=== PATIENT | male | born 1985 | race Caucasian/White ===

== ENCOUNTER 2022-05-05 17:44 | Emergency (ER) | payer OTHER ==
[~2022-05-05] VITALS: Ht 167.6 cm; Wt 72.6 kg
--- NOTE | 2022-05-05 18:23 | NUR ---
BIBDMITRIY FROM [facility] FOR BILATERAL FOOT SWELLING AND REDNESS [id number]
--- NOTE | 2022-05-05 18:23 | NUR ---
BIBDMITRIY FROM [facility] FOR BILATERAL FOOT SWELLING AND REDNESS [id number]
[2022-05-05] MEDS ORDERED: IBUPROFEN 600 MG TABLET PO ONE (18:30)
[2022-05-05] MEDS ORDERED: CEPHALEXIN MONOHYDRATE 500 MG CAPSULE PO ONE ×2 (18:30→19:09)
[2022-05-05] MEDS ORDERED: SULFAMETH/TRIMETH 800/160 MG 1 UDTAB TABLET PO ONE (18:30)
[2022-05-05] MEDS ORDERED: IBUP-1953 PO (18:38)
[2022-05-05] MEDS ORDERED: SULF1TAB48 PO (18:38)
[2022-05-05] MEDS ORDERED: CEPH500C2 PO (18:38)
[2022-05-05] MEDS ORDERED: IBUPROFEN 600 MG TABLET ONE (19:09)
[2022-05-05] MEDS ORDERED: SULFAMETH/TRIMETH 800/160 MG 1 UDTAB TABLET ONE (19:09)
--- NOTE | 2022-05-05 19:11 | NUR ---
Patient discharged to home in stable condition. Written and verbal after care instructions given. Patient verbalizes understanding of instruction.
[2022-05-05 19:13] VITALS: BP 131/87
== END 2022-05-05 19:13 ==
LOC: ER 17:48
DX: L03.116 Cellulitis of left lower limb (principal); Z79.899 Other long term (current) drug therapy
CPT/HCPCS: 82962-TC